=== PATIENT | female | born 1990 | race Caucasian/White ===

== ENCOUNTER 2016-09-04 02:49 | Emergency (ER) | payer OTHER ==
[~2016-09-04] VITALS: Ht 162.6 cm; Wt 72.7 kg
[2016-09-04 05:20] VITALS: BP 107/62
== END 2016-09-04 05:48 | disposition home or self-care (01) ==
LOC: EMS 02:54
DX: F10.129 Alcohol abuse with intoxication, unspecified (principal)
CPT/HCPCS: 99283